=== PATIENT | female | born 1980 | race Caucasian/White ===

== ENCOUNTER 2025-05-02 10:40 | Outpatient (CLI) | payer MEDICARE, MEDICAID, SELFPAY ==
--- NOTE | 2025-05-02 11:43 | PC.APCO ---
Social work: Received phone call from nurse stating pt had stated she does not get along with her foster mother and her foster father keeps the foster mother away from her. Pt had also stated to nurse that the [facility] social [facility] about this and is following up with her next week. child welfare worker called [facility] and confirmed pt has an open case and [facility] information pt shared with nurse and is following up next week. Per [facility] a new report is not needed.
--- NOTE | 2025-05-02 12:34 | P.ANES_ITS ---
Anesthesia Charges Start Date/Time Anesthesia Start Date: 05/02/25 Anesthesia Start Time: 12:15 Stop Date/Time Anesthesia Stop Date: 05/02/25 Anesthesia Stop Time: 12:31 Coding CPT Codes CPT Codes: ANES UPR GI NDSC PX NOS - 74391 ([id number]) P2 - PATIENT W/MILD SYST DISEASE, QK - COMMERCIAL SALES DIRECTOR 2-4 CNCRNT ANES PROC, QX - METALIZING SUPERVISOR SVC W/ MD MED DIRECTION
--- NOTE | 2025-05-02 12:34 | W.ANESCHARGE ---
Anesthesia Charges Start Date/Time Anesthesia Start Date: 05/02/25 Anesthesia Start Time: 12:15 Stop Date/Time Anesthesia Stop Date: 05/02/25 Anesthesia Stop Time: 12:31 Coding CPT Codes CPT Codes: ANES UPR GI NDSC PX NOS - 31997 ([id number]) P2 - PATIENT W/MILD SYST DISEASE, QK - DIVERSITY SPECIALIST 2-4 CNCRNT ANES PROC, QX - CLAMPER SVC W/ MD MED DIRECTION
--- NOTE | 2025-05-02 12:47 | P.ANES_ITS ---
Anesthesia Charges Start Date/Time Anesthesia Start Date: 05/02/25 Anesthesia Start Time: 12:15 Stop Date/Time Anesthesia Stop Date: 05/02/25 Anesthesia Stop Time: 12:31 Coding CPT Codes CPT Codes: ANES UPR GI NDSC PX NOS - 43790 ([id number]) P2 - PATIENT W/MILD SYST DISEASE, QK - VOLUNTEER SERVICES ASSISTANT 2-4 CNCRNT ANES PROC, QX - EXERCISE PLANNER SVC W/ MD MED DIRECTION
--- NOTE | 2025-05-02 12:47 | W.ANESCHARGE ---
Anesthesia Charges Start Date/Time Anesthesia Start Date: 05/02/25 Anesthesia Start Time: 12:15 Stop Date/Time Anesthesia Stop Date: 05/02/25 Anesthesia Stop Time: 12:31 Coding CPT Codes CPT Codes: ANES UPR GI NDSC PX NOS - [id number] ([id number]) P2 - PATIENT W/MILD SYST DISEASE, QK - TALENT ACQUISITION ADMINISTRATOR 2-4 CNCRNT ANES PROC, QX - EQUAL OPPORTUNITY ASSISTANT SVC W/ MD MED DIRECTION
== END 2025-05-02 10:41 | disposition home or self-care (01) ==
PROVIDERS: PCP Nurse Practitioner Family; Visit Provider Internal Medicine Gastroenterology
DX: K25.9 Gastric ulcer, unspecified as acute or chronic, without hemorrhage or perforation (principal); R10.13 Epigastric pain; R11.2 Nausea with vomiting, unspecified; R63.4 Abnormal weight loss; K31.89 Other diseases of stomach and duodenum
CPT/HCPCS: 00731; 43239; 88305; J2704; J3490